=== PATIENT | male | born 1995 | race Caucasian/White ===

== ENCOUNTER 2016-10-26 11:02 | Emergency (ER) | payer OTHER ==
[~2016-10-26] VITALS: Ht 177.8 cm; Wt 98.0 kg
[2016-10-26] MEDS ORDERED: CIPR500T89 PO (11:15)
[2016-10-26 12:55] LABS: ANION GAP 5 MEQ/L (8-16); BASO % 0.3 % (0.0-1.0); BLOOD UREA NITROGEN 12 MG/DL (7-18); CALCIUM LEVEL 9.3 MG/DL (8.5-10.1); CARBON DIOXIDE LEVEL 31 MEQ/L (21-32); CHLORIDE LEVEL 98 MEQ/L (98-107); CREATININE FOR GFR 1.21 MG/DL (0.70-1.30); EOS # 0.2 K/mm3 (0.0-0.50); GLOMERULAR FILTRATION RATE > 60.0 (>60); GLUCOSE, FASTING 100 MG/DL (70-105); LARGE UNSTAINED CELL # 0.1 K/mm3 (0.0-0.4); LARGE UNSTAINED CELL % 0.9 % (0.0-4.0); LYMPH # 1.5 K/mm3 (1.5-6.5); LYMPH % 11.2 % (24.0-44.0); MEAN CORPUSCULAR HEMOGLOBIN 31.5 pg (27.0-33.0); MEAN CORPUSCULAR HGB CONC 35.8 g/dl (32.0-36.5); MONO # 0.8 K/mm3 (0.0-0.8); MONO % 6.2 % (0.0-5.0); NEUTROPHILS # 10.1 K/mm3 (1.8-7.7); NEUTROPHILS % 79.3 % (36.0-66.0); PLATELET COUNT, AUTOMATED 259 k/mm3 (150-450); POTASSIUM SERUM 3.6 MEQ/L (3.5-5.1); RED CELL DISTRIBUTION WIDTH 11.7 % (11.5-14.5); SODIUM LEVEL 134 MEQ/L (136-145); WHITE BLOOD COUNT 12.7 K/mm3 (4.0-10.0)
[2016-10-26] MEDS ORDERED: CLINDAMYCIN 900 MG in APPROPRIATE DILUENT 1 EA IV ONE (13:30)
--- NOTE | 2016-10-26 13:34 | REP ---
ULTRASOUND LEFT FOREARM: Real-time sonographic evaluation of the left forearm performed in area of redness and swelling. Soft tissues are heterogeneous in echotexture. There are three tiny complex focal areas which may represent phlegmonous change or tiny areas of complex fluid. These measure 10 x 10 x 9 mm, 9 x 6 mm and 10 x 9 x 9 mm. IMPRESSION: Three tiny areas in the subcutaneous soft tissues which are complex and may represent phlegmonous change or complex fluid, maximum diameter 1 cm. Signed by Cody Philip MD 10/26/2016 05:23 P
[2016-10-26] MEDS ORDERED: CLEO300C2 PO (14:18)
[2016-10-26 14:26] VITALS: BP 140/85
== END 2016-10-26 14:49 | disposition home or self-care (01) ==
LOC: M ED 11:52
DX: L03.114 Cellulitis of left upper limb (principal); L73.9 Follicular disorder, unspecified

== ENCOUNTER 2016-10-28 11:29 | Emergency (ER) | payer OTHER ==
[~2016-10-28] VITALS: Ht 177.8 cm; Wt 98.2 kg
[~2016-10-28 11:29] MED LIST: CIPR500T89 PO; CLEO300C2 PO
[2016-10-28 11:30] VITALS: BP 165/89
== END 2016-10-28 13:30 | disposition home or self-care (01) ==
LOC: M ED 13:27 → EEVIPCON 13:27 → M ED 13:30
DX: L03.114 Cellulitis of left upper limb (principal); Z51.89 Encounter for other specified aftercare